=== PATIENT | male | born 1950 | race Caucasian/White ===

== ENCOUNTER 2018-07-22 14:51 | Emergency (ER) | payer MEDICARE, BC ==
[2018-07-22 15:54] VITALS: BP 143/81
--- NOTE | 2018-07-22 16:13 | UC ---
General HPI - HPI Summary HPI Summary: pt c/o a 3 week hx of cough with chest congestion. now feeling fatigued. admits to occasion sob with exertion. fever 100.3 on day one only.occasional wheezing. no chest pain. - History of Current Complaint Chief Complaint: UCGeneralIllness Stated Complaint: COUGH CONGESTION Time Seen by Provider: 07/22/18 15:45 Hx Obtained From: Patient Onset/Duration: Gradual Onset Timing: Constant Pain Intensity: 0 - Allergy/Home Medications Allergies/Adverse Reactions: Allergies Allergy/AdvReac Type Severity Reaction Status Date / Time bacitracin Allergy Intermediate Rash Verified 07/22/18 15:55 bee stings Allergy Intermediate swelling Uncoded 07/22/18 15:55 at site Home Medications: Home Medications Atorvastatin* [Lipitor*] 10 mg PO DAILY 07/22/18 [History Confirmed 07/22/18] Hydrochlorothiazide TAB* [Hydrodiuril TAB*] 25 mg PO DAILY 07/22/18 [History Confirmed 07/22/18] Metoprolol Tartrate TAB* [Lopressor TAB*] 100 mg PO DAILY 07/22/18 [History Confirmed 07/22/18] PMH/Surg Hx/FS Hx/Imm Hx Endocrine History: Dyslipidemia Cardiovascular History: Hypertension - Surgical History Surgical History: Yes Surgery Procedure, Year, and Place: hernia 2014. tonsillectomy - Family History Known Family History: Positive: Other - scleroderma - Social History Occupation: Retired Alcohol Use: Occasionally Substance Use Type: None Smoking Status (MU): Never Smoked Tobacco - Immunization History Vaccination Up to Date: Yes Review of Systems Constitutional: Fever - day one of illness, Fatigue Skin: Negative Eyes: Negative ENT: Negative Respiratory: Shortness Of Breath, Cough Cardiovascular: Negative Gastrointestinal: Negative Genitourinary: Negative Motor: Negative Neurovascular: Negative Musculoskeletal: Negative Neurological: Negative Psychological: Negative Is Patient Immunocompromised?: No All Other Systems Reviewed And Are Negative: Yes Physical Exam Triage Information Reviewed: Yes Appearance: Well-Appearing Vital Signs: Initial Vital Signs Temp 99.1 F 07/22/18 15:48 Pulse 78 07/22/18 15:48 Resp 17 07/22/18 15:48 BP 143/81 07/22/18 15:48 Pulse Ox 99 07/22/18 15:48 Vital Signs Reviewed: Yes Eyes: Positive: Conjunctiva Clear ENT: Positive: Pharynx normal, TMs normal. Negative: Nasal congestion, Nasal drainage Neck: Positive: Supple, Nontender, No Lymphadenopathy Respiratory: Positive: Lungs clear, No respiratory distress, Decreased breath sounds, Other: - Cough is congested Cardiovascular: Positive: RRR, No Murmur Abdomen Description: Positive: Nontender, No Organomegaly, Soft Bowel Sounds: Positive: Present Musculoskeletal: Positive: ROM Intact, No Edema Neurological: Positive: Alert Psychological: Positive: Age Appropriate Behavior Skin Exam: Normal Diagnostics - Laboratory Diagnostic Studies Completed/Ordered: CXR= Stigmata of obstructive lung disease. No acute pulmonary or cardiac process evident. Re-Evaluation - Re-Evaluation First Eval Re-Evaluation Time: 17:02 Change: Improved Comment: BETTER AERATION WITH OCCASIONAL WHEEZING ON R Course/Dx - Course Course Of Treatment: Non toxic and not hypoxic. ill x 3 weeks. improved post albuterol tx with occasional wheezes on r after. will cover for a possible early pneumonia with doxycycline. will add albuterol inhaler for the bronchospasm. pt declined tx with steroid - Differential Dx - Multi-Symptom Provider Diagnoses: Acute cough. Bronchospasm. Possible early pneumonia. Discharge - Sign-Out/Discharge Documenting (check all that apply): Patient Departure All imaging exams completed and their final reports reviewed: Yes - Discharge Plan Condition: Stable Disposition: HOME Prescriptions: Albuterol HFA INHALER* [Ventolin HFA Inhaler*] 2 puff INH Q6H #1 mdi DOXYcycline CAP(*) [DOXYcycline 100MG CAP(*)] 100 mg PO BID 10 Days #20 cap Patient Education Materials: Community Acquired Pneumonia (ED) Referrals: Max Merrill DO [Primary Care Provider] - Additional Instructions: FOLLOW UP DR MERRILL IN 5-7 DAYS FOR A RECHECK OR SOONER IF WORSE. GO TO THE ER FOR ANY WORSENING. DIAGNOSIS: ACUTE COUGH. BRONCHOSPASM. POSSIBLE EARLY PNEUMONIA - Billing Disposition and Condition Condition: STABLE Disposition: Home - Attestation Statements Provider Attestation: Per institutional requirements, I have reviewed the chart, however, I was not consulted specifically or made aware of this patient by the midlevel provider. I did not personally evaluate, interact with , or disposition this patient.
[2018-07-22] MEDS ORDERED: Albuterol 2.5 MG/3 ML NEB.SOL* (0.083%) INH ONE (16:15)
--- NOTE | 2018-07-22 16:50 | RAD ---
INDICATION: 3 weeks productive cough, congestion, shortness of breath. COMPARISON: No relevant prior exams available on the [facility] [place] [facility] PACS for comparison. TECHNIQUE: Dual energy PA and routine lateral views of the chest were obtained. REPORT: Elevated lung volumes and mild prominence of the interstitial markings. No focal pulmonary lesion, compelling alveolar consolidation, pleural effusion, pneumothorax. Negative for cardiomegaly. Unremarkable central pulmonary vasculature. Moderately tortuous descending thoracic aorta. Thoracic degenerative spondylosis. IMPRESSION: #. Stigmata of obstructive lung disease. No acute pulmonary or cardiac process evident.
== END 2018-07-22 17:15 | disposition home or self-care (01) ==
LOC: UCCORT 14:51
DX: R05 Cough (principal); J98.01 Acute bronchospasm; I10 Essential (primary) hypertension; E78.5 Hyperlipidemia, unspecified; Z79.899 Other long term (current) drug therapy
CPT/HCPCS: 71046; 99212; G0463